=== PATIENT | male | born 1980 | race Two or more races ===

== ENCOUNTER 2019-11-25 01:06 | Emergency (ER) | payer MEDICAID ==
[~2019-11-25] VITALS: Ht 162.6 cm; Wt 86.2 kg
[2019-11-25 01:08] VITALS: BP 148/69
== END 2019-11-25 01:33 | disposition home or self-care (01) ==
LOC: ER 01:11
DX: R06.4 Hyperventilation (principal); F17.210 Nicotine dependence, cigarettes, uncomplicated; R42 Dizziness and giddiness; E11.9 Type 2 diabetes mellitus without complications; F41.9 Anxiety disorder, unspecified